=== PATIENT | male | born 1995 | race African-American/Black ===

== ENCOUNTER 2024-07-12 18:41 | Inpatient (IN) ==
--- NOTE | 2024-07-12 20:03 | DR.EXTPAIN ---
HPI Time seen Time Seen by Provider: 07/12/24 20:01 PCP Primary Care Physician: ERICA Complaint/Symptoms Chief Complaint:: Patient ambulated to triage and stated " for about a week tania noticed a a rash on my thigh that extended to my crack and then it became extremely painful. He was told by a friend it might be jock itch so he tried antifungals with no relief of symptoms. He also complains of painful discharge and dysuria and has seen bumps on his penis." Self Treatment fo Chief Complaint: Antifungal sprays. COVID-19 Coronavirus risk:travel/contact w/high risk person: No Has patient experienced Coronavirus symptoms: No Nurses notes reviewed Nurses Notes Review: Yes Source History Provided: Patient Mode of arrival Mode of Arrival: Ambulatory Timing Onset of Chief Complaint: 07/12/24 PMH PMH Past Medical History: No Past Medical History: Anxiety Past Surgical History: No Surgical History: No History Family History History of Family Medical Conditions: Yes Family Medical History: Diabetes Mellitus and Hypertension Social History Do you use any recreational Drugs:: No Travel Risk Coronavirus risk:travel/contact w/high risk person: No Has patient experienced Coronavirus symptoms: No Infectious screening In the last 2 months have you had wt loss of >10#?: NO Have you had fever, night sweats or hemotysis?: No Have you traveled outside the country in the last 6 months?: No Isolation: Standard PE Vital Signs Vitals: Vital Signs Temperature 98.1 F Pulse Rate [Left Brachial] 94 Pulse Rate 105 Respiratory Rate 18 Respiratory Rate 21 Respiratory Rate 21 Respiratory Rate 18 Blood Pressure [Left Arm] 143/83 Blood Pressure 142/82 O2 Sat by Pulse Oximetry 99 O2 Sat by Pulse Oximetry 97 ROR Labs Reviewed 07/14/24 04:16 07/14/24 04:16 Laboratory: WBC 6.6 X10^3/uL (3.6-10.0) 07/12/24 20:45 RBC 4.98 X10^6/uL (4.7-6.0) 07/12/24 20:45 Hgb 14.8 g/dL (13.5-18.0) 07/12/24 20:45 Hct 44.9 % (42.0-54.0) 07/12/24 20:45 MCV 90.0 fL (80.0-100.0) 07/12/24 20:45 MCH 29.6 pg (27.0-34.0) 07/12/24 20:45 MCHC 32.9 g/dL (33.0-35.0) L 07/12/24 20:45 RDW 12.9 % (11.6-16.5) 07/12/24 20:45 Plt Count 209 X10^3/uL (150.0-450.0) 07/12/24 20:45 MPV 9.5 fL (7.4-11.0) 07/12/24 20:45 Neut % (Auto) 71.3 % (42.0-75.0) 07/12/24 20:45 Lymph % (Auto) 18.6 % (21.0-51.0) L 07/12/24 20:45 [place] % (Auto) 9.3 % (0.0-13.0) 07/12/24 20:45 Eos % (Auto) 0.3 % (0.9-2.9) L 07/12/24 20:45 Baso % (Auto) 0.5 % (0.2-1.0) 07/12/24 20:45 Neut # (Auto) 4.7 x10^3/uL (2.2-4.8) 07/12/24 20:45 Lymph # (Auto) 1.2 X10^3/uL (1.3-2.9) L 07/12/24 20:45 [place] # (Auto) 0.6 x10^3/uL (0.3-0.8) 07/12/24 20:45 Eos # (Auto) 0.0 x10^3/uL (0.0-0.2) 07/12/24 20:45 Baso # (Auto) 0.0 X10^3/uL (0.0-0.1) 07/12/24 20:45 Absolute Nucleated RBC 0.2 /100WBC 07/12/24 20:45 Sodium 135 mmol/L (136-145) L 07/12/24 20:45 Corrected Sodium TNP 07/12/24 20:45 Potassium 4.2 mmol/L (3.5-5.1) 07/12/24 20:45 Chloride 99 mmol/L (98-107) 07/12/24 20:45 Carbon Dioxide 26.3 mmol/L (21-32) 07/12/24 20:45 BUN 11 mg/dL (7-18) 07/12/24 20:45 Creatinine 1.08 mg/dL (0.70-1.30) 07/12/24 20:45 Est GFR (MDRD) Af Amer > 60 (>60) 07/12/24 20:45 Est GFR (MDRD) Non-Af > 60 (>60) 07/12/24 20:45 Glucose 88 mg/dL (65-99) 07/12/24 20:45 Calcium 9.0 mg/dL (8.5-10.1) 07/12/24 20:45 Corrected Calcium TNP 07/12/24 20:45 Total Bilirubin 0.20 mg/dL (0.2-1.0) 07/12/24 20:45 AST 41 Units/L (15-37) H 07/12/24 20:45 ALT 63 Units/L (12-78) 07/12/24 20:45 Alkaline Phosphatase 105 Units/L (46-116) 07/12/24 20:45 Total Protein 9.8 g/dL (6.4-8.2) H 07/12/24 20:45 Albumin 3.5 g/dL (3.4-5.0) 07/12/24 20:45 Globulin 6.3 g/dL (2.5-4.5) H 07/12/24 20:45 Albumin/Globulin Ratio 0.6 Ratio (1.1-2.1) L 07/12/24 20:45 Specimen Type Clean catch urine 07/12/24 19:57 Urine Color Yellow (YELLOW) 07/12/24 19:57 Urine Appearance Slightly hazy (CLEAR) 07/12/24 19:57 Urine pH 6.0 (5.0 - 8.0) 07/12/24 19:57 Ur Specific [place] 1.020 (1.000-1.030) 07/12/24 19:57 Urine Protein 3+ (NEGATIVE) 07/12/24 19:57 Urine Glucose (UA) Negative (NEGATIVE) 07/12/24 19:57 Urine Ketones Negative (NEGATIVE) 07/12/24 19: Urine Blood 5+ (NEGATIVE) 07/12/24 19:57 Urine Nitrite Negative (NEGATIVE) 07/12/24 19:57 Urine Bilirubin Negative (NEGATIVE) 07/12/24 19:57 Urine Urobilinogen Normal (NORMAL) 07/12/24 19:57 Ur Leukocyte Esterase Negative (NEGATIVE) 07/12/24 19:57 Urine RBC Tntc /HPF (0-3) A 07/12/24 19:57 Urine WBC 0-2 /HPF (0-5) 07/12/24 19:57 Ur Squamous Epith Cells Rare /HPF (NEGATIVE) 07/12/24 19:57 Urine Bacteria Trace /HPF (NEGATIVE) 07/12/24 19:57 Ur Culture Indicated? No/not indicated 07/12/24 19:57 RPR Nonreactive (NONREACTIVE) 07/12/24 20:45 Ur C. trach DNA (PCR) Not detected (NOT DETECT) 07/12/24 19:57 U N.gonorrhoeae DNA PCR Not detected (NOT DETECT) 07/12/24 19:57 Opioid Opioid Risk Tool Age (Yonathan box if 16-45): Yes History of Preadolescent Sexual Abuse: No Total: 1 Total Score Risk Category: Low Risk Copyright: Efrain NERI predicting aberrant behaviors Discharge Plan Diagnosis Discharge Problem: Herpes genitalis in men, Herpes zoster, Hematuria Discharge Plan Patient Disposition: 09 ADMITTED INPATIENT Condition: Stable
[2024-07-12 20:06] LABS: BILIRUBIN,URINE NEGATIVE (NEGATIVE); BLOOD/HEMOGLOBIN,URINE 5+ (NEGATIVE); GLUCOSE, URINE NEGATIVE (NEGATIVE); KETONES,URINE NEGATIVE (NEGATIVE); LEUKOCYTE ESTERASE ,URINE NEGATIVE (NEGATIVE); NITRITES,URINE NEGATIVE (NEGATIVE); PROTEIN,URINE 3+ (NEGATIVE); UROBILINOGEN,URINE NORMAL (NORMAL)
[2024-07-12 20:17] LABS: APPEARANCE,URINE SLIGHTLY HAZY (CLEAR); COLOR,URINE YELLOW (YELLOW)
[2024-07-12 20:18] LABS: BACTERIA,URINE TRACE /HPF (NEGATIVE); RBC,URINE TNTC /HPF (0-3); SQUAMOUS EPITHELIAL CELL,UR RARE /HPF (NEGATIVE)
[2024-07-12] MEDS: ZOFRAN INJ 4 MG VIAL IVP ONE (20:51)
[2024-07-12] MEDS: NS 1,000 ML IV 1,000 ML IV ONE (20:51)
[2024-07-12] MEDS: TORADOL 30 MG VIAL IVP ONE (20:58)
[2024-07-12] MEDS: MORPHINE SULFATE INJ 4 MG IVP ONE (21:03)
[2024-07-12] MEDS: ZITHROMAX TAB 250 MG PO ONE (21:15)
[2024-07-12] MEDS: ROCEPHIN VIAL 1 GRAM IVP ONE (21:15)
[2024-07-12 23:23] LABS: BASOPHILS % (AUTO) 0.5 % (0.2-1.0); EOSINOPHILS % (AUTO) 0.3 % (0.9-2.9); HEMATOCRIT 44.9 % (42.0-54.0); HEMOGLOBIN 14.8 g/dL (13.5-18.0); LYMPHOCYTES # (AUTO) 1.2 X10^3/uL (1.3-2.9); LYMPHOCYTES % (AUTO) 18.6 % (21.0-51.0); MEAN CORPUSCULAR HEMOGLOBIN 29.6 pg (27.0-34.0); MEAN CORPUSCULAR HGB CONC 32.9 g/dL (33.0-35.0); MEAN PLATELET VOLUME 9.5 fL (7.4-11.0); MONOCYTES # (AUTO) 0.6 x10^3/uL (0.3-0.8); MONOCYTES % (AUTO) 9.3 % (0.0-13.0); NEUTROPHILS # (AUTO) 4.7 x10^3/uL (2.2-4.8); NEUTROPHILS % (AUTO) 71.3 % (42.0-75.0); PLATELET COUNT 209 X10^3/uL (150.0-450.0); RED BLOOD COUNT 4.98 X10^6/uL (4.7-6.0); RED CELL DISTRIBUTION WIDTH 12.9 % (11.6-16.5); WHITE BLOOD COUNT 6.6 X10^3/uL (3.6-10.0)
[2024-07-12 23:29] LABS: ALANINE AMINOTRANSFERASE 63 Units/L (12-78); ALBUMIN 3.5 g/dL (3.4-5.0); ALKALINE PHOSPHATASE 105 Units/L (46-116); ASPARTATE AMINO TRANSFERASE 41 Units/L (15-37); BLOOD UREA NITROGEN 11 mg/dL (7-18); CARBON DIOXIDE 26.3 mmol/L (21-32); CHLORIDE 99 mmol/L (98-107); CREATININE 1.08 mg/dL (0.70-1.30); GLUCOSE 88 mg/dL (65-99); POTASSIUM 4.2 mmol/L (3.5-5.1); SODIUM 135 mmol/L (136-145); TOTAL PROTEIN 9.8 g/dL (6.4-8.2); eGFR NON BLACK RACES > 60 (>60)
[2024-07-12] MEDS: ZOVIRAX VIAL 500 MG 1,000 MG in NS 250 ML IV 250 ML IV SCH (23:45)
[2024-07-12] MEDS: NS 1,000 ML IV 1,000 ML IV SCH (23:45)
[2024-07-13 00:05] VITALS: BMI 26.9
[2024-07-13] MEDS: MORPHINE SULFATE INJ 4 MG IVP PRN (00:11)
[2024-07-13] MEDS: TORADOL 30 MG VIAL IVP PRN (04:24)
[2024-07-13] MEDS: ZOFRAN INJ 4 MG VIAL IVP PRN (04:43)
[2024-07-13 04:57] LABS: BASOPHILS % (AUTO) 0.8 % (0.2-1.0); EOSINOPHILS % (AUTO) 0.2 % (0.9-2.9); HEMATOCRIT 37.6 % (42.0-54.0); LYMPHOCYTES # (AUTO) 1.9 X10^3/uL (1.3-2.9); LYMPHOCYTES % (AUTO) 30.4 % (21.0-51.0); MEAN CORPUSCULAR HEMOGLOBIN 29.2 pg (27.0-34.0); MEAN CORPUSCULAR HGB CONC 32.7 g/dL (33.0-35.0); MEAN CORPUSCULAR VOLUME 89.3 fL (80.0-100.0); MEAN PLATELET VOLUME 8.6 fL (7.4-11.0); MONOCYTES # (AUTO) 0.6 x10^3/uL (0.3-0.8); MONOCYTES % (AUTO) 10.2 % (0.0-13.0); NEUTROPHILS # (AUTO) 3.6 x10^3/uL (2.2-4.8); NEUTROPHILS % (AUTO) 58.4 % (42.0-75.0); PLATELET COUNT 187 X10^3/uL (150.0-450.0); RED BLOOD COUNT 4.22 X10^6/uL (4.7-6.0); WHITE BLOOD COUNT 6.2 X10^3/uL (3.6-10.0)
[2024-07-13 05:08] LABS: ALANINE AMINOTRANSFERASE 49 Units/L (12-78); ALBUMIN 2.7 g/dL (3.4-5.0); ALKALINE PHOSPHATASE 86 Units/L (46-116); ASPARTATE AMINO TRANSFERASE 35 Units/L (15-37); BLOOD UREA NITROGEN 11 mg/dL (7-18); CARBON DIOXIDE 26.5 mmol/L (21-32); CHLORIDE 101 mmol/L (98-107); CREATININE 1.23 mg/dL (0.70-1.30); GLUCOSE 92 mg/dL (65-99); POTASSIUM 4.4 mmol/L (3.5-5.1); SODIUM 133 mmol/L (136-145); TOTAL PROTEIN 7.8 g/dL (6.4-8.2); eGFR NON BLACK RACES > 60 (>60)
[2024-07-13 05:17] LABS: HEMOGLOBIN 12.3 g/dL (13.5-18.0)
[2024-07-13] MEDS: TYLENOL 325 MG TAB PO PRN (07:50)
--- NOTE | 2024-07-13 11:03 | DR.H&P ---
H&P History & Physical for Day of: H&P Date: 07/13/24 Chief Complaint Chief Complaint: genital rash, pain History of Present Illness History of Present Illness: Mr Gallego is a 28y/o male with no pertinent medical hx presented with worsening groin/genital pain and rash. He states he started having burning pain and discomfort in the right groin/thigh area and around his penis/scrotum area on Friday. He noticed blisters and redness the following day. He denies having HSV infection before. He has had STDs in the past years ago. He denies being on any medications at this time. ER work up showed no pertinent lab abnormalities, RPR neg, Chlamydia/Gonorrhea (-), viral culture was collected. Patient was started on IV Acyclovir, hydration and pain control. Patient had ER visit in 2019 for STD, at the time HIV testing was done which was reactive and positive. Patient states he was unaware of his results. Labs/imaging reviewed: -WBC 6.2 Hgb 12.3 K 4.4 BUN/Cr 03/26. -Viral culture pending Plan: Continue hydration, IV acyclovir and pain control. Will add topical acyclovir. Will repeat HIV testing. Replace electrolytes prn. Monitor AM labs/imaging. Past Medical History Past Medical History: Anxiety Past Surgical History Surgical History: No History Family History Family Medical History: Diabetes Mellitus, Heart Failure and Hypertension Social History Does patient currently use any type of tobacco product: Yes Type of Tobacco Use: Cigarettes How many years tobacco product used: 15 Does any household member use tobacco: No Alcohol Use: None Drug Use: None Medications Home Medications: Home Medications Medication Instructions Recorded Confirmed Type sulfamethoxazole 800 1 tab PO BID 07/12/24 07/12/24 History mg-trimethoprim 160 mg tablet (Bactrim DS) Allergies Allergies Allergy/AdvReac Type Severity Reaction Status Date / Time No Known Drug Allergies Allergy Verified 01/02/21 15:06 Labs 07/13/24 04:36 07/13/24 04:36 Labs: Laboratory WBC 6.2 X10^3/uL (3.6-10.0) 07/13/24 04:36 RBC 4.22 X10^6/uL (4.7-6.0) L 07/13/24 04:36 Hgb 12.3 g/dL (13.5-18.0) L D 07/13/24 04:36 Hct 37.6 % (42.0-54.0) L 07/13/24 04:36 MCV 89.3 fL (80.0-100.0) 07/13/24 04:36 MCH 29.2 pg (27.0-34.0) 07/13/24 04:36 MCHC 32.7 g/dL (33.0-35.0) L 07/13/24 04:36 RDW 13.0 % (11.6-16.5) 07/13/24 04:36 Plt Count 187 X10^3/uL (150.0-450.0) 07/13/24 04:36 MPV 8.6 fL (7.4-11.0) 07/13/24 04:36 Neut % (Auto) 58.4 % (42.0-75.0) 07/13/24 04:36 Lymph % (Auto) 30.4 % (21.0-51.0) 07/13/24 04:36 [place] % (Auto) 10.2 % (0.0-13.0) 07/13/24 04:36 Eos % (Auto) 0.2 % (0.9-2.9) L 07/13/24 04:36 Baso % (Auto) 0.8 % (0.2-1.0) 07/13/24 04:36 Neut # (Auto) 3.6 x10^3/uL (2.2-4.8) 07/13/24 04:36 Lymph # (Auto) 1.9 X10^3/uL (1.3-2.9) 07/13/24 04:36 [place] # (Auto) 0.6 x10^3/uL (0.3-0.8) 07/13/24 04:36 Eos # (Auto) 0.0 x10^3/uL (0.0-0.2) 07/13/24 04:36 Baso # (Auto) 0.0 X10^3/uL (0.0-0.1) 07/13/24 04:36 Absolute Nucleated RBC 0.1 /100WBC 07/13/24 04:36 Sodium 133 mmol/L (136-145) L 07/13/24 04:36 Corrected Sodium TNP 07/13/24 04:36 Potassium 4.4 mmol/L (3.5-5.1) 07/13/24 04:36 Chloride 101 mmol/L (98-107) 07/13/24 04:36 Carbon Dioxide 26.5 mmol/L (21-32) 07/13/24 04:36 BUN 11 mg/dL (7-18) 07/13/24 04:36 Creatinine 1.23 mg/dL (0.70-1.30) 07/13/24 04:36 Est GFR (MDRD) Af Amer > 60 (>60) 07/13/24 04:36 Est GFR (MDRD) Non-Af > 60 (>60) 07/13/24 04:36 Glucose 92 mg/dL (65-99) 07/13/24 04:36 Calcium 8.0 mg/dL (8.5-10.1) L 07/13/24 04:36 Corrected Calcium 9.0 mg/dL (8.5-10.1) 07/13/24 04:36 Total Bilirubin 0.20 mg/dL (0.2-1.0) 07/13/24 04:36 AST 35 Units/L (15-37) 07/13/24 04:36 ALT 49 Units/L (12-78) 07/13/24 04:36 Alkaline Phosphatase 86 Units/L (46-116) 07/13/24 04:36 Total Protein 7.8 g/dL (6.4-8.2) 07/13/24 04:36 Albumin 2.7 g/dL (3.4-5.0) L 07/13/24 04:36 Globulin 5.1 g/dL (2.5-4.5) H 07/13/24 04:36 Albumin/Globulin Ratio 0.5 Ratio (1.1-2.1) L 07/13/24 04:36 Specimen Type Clean catch urine 07/12/24 19:57 Urine Color Yellow (YELLOW) 07/12/24 19:57 Urine Appearance Slightly hazy (CLEAR) 07/12/24 19:57 Urine pH 6.0 (5.0 - 8.0) 07/12/24 19:57 Ur Specific [place] 1.020 (1.000-1.030) 07/12/24 19:57 Urine Protein 3+ (NEGATIVE) 07/12/24 19:57 Urine Glucose (UA) Negative (NEGATIVE) 07/12/24 19:57 Urine Ketones Negative (NEGATIVE) 07/12/24 19:57 Urine Blood 5+ (NEGATIVE) 07/12/24 19:57 Urine Nitrite Negative (NEGATIVE) 07/12/24 19:57 Urine Bilirubin Negative (NEGATIVE) 07/12/24 19:57 Urine Urobilinogen Normal (NORMAL) 07/12/24 19:57 Ur Leukocyte Esterase Negative (NEGATIVE) 07/12/24 19:57 Urine RBC Tntc /HPF (0-3) A 07/12/24 19:57 Urine WBC 0-2 /HPF (0-5) 07/12/24 19:57 Ur Squamous Epith Cells Rare /HPF (NEGATIVE) 07/12/24 19:57 Urine Bacteria Trace /HPF (NEGATIVE) 07/12/24 19:57 Ur Culture Indicated? No/not indicated 07/12/24 19:57 RPR Nonreactive (NONREACTIVE) 07/12/24 20:45 Ur C. trach DNA (PCR) Not detected (NOT DETECT) 07/12/24 19:57 U N.gonorrhoeae DNA PCR Not detected (NOT DETECT) 07/12/24 19:57 Review of Systems Constitutional: No Symptoms Reported Eyes: No Symptoms Reported ENT: No Symptoms Reported Respiratory: No Symptoms Reported Cardiovascular: No Symptoms Reported Gastrointestinal: No Symptoms Reported Genitourinary: Dysuria and Other (penile discharge ) Musculoskeletal: Leg Pain Skin: No Symptoms Reported Neurological: No Symptoms Reported Physical Exam Vital Signs: Vital Signs Temperature 99.5 F Temperature 100.6 F Temperature 101.3 F Temperature 98.2 F Pulse Rate [Left Brachial] 95 Pulse Rate [Left Brachial] 104 Respiratory Rate 18 Respiratory Rate 18 Respiratory Rate 18 Respiratory Rate 18 Respiratory Rate 18 Respiratory Rate 20 Respiratory Rate 20 Blood Pressure [Left Arm] 126/64 Blood Pressure [Left Arm] 134/65 O2 Sat by Pulse Oximetry 97 O2 Sat by Pulse Oximetry 96 Oriented: Normal Eyes: Normal Ear: Normal Nose: Normal Throat: Normal Respiratory: Clear Throughout Cardiovascular: Normal Auscultation: Bowel Sounds: Normal Palpation: Normal Tenderness: Normal Skin: Vesicular, Pustular, Red, Tender (Right groin/scrotal area including penis ) and Hot Musculoskeletal: Right, Thigh and Leg Psychiatric: Normal Mood Description: Calm Affect: Normal Speech Pattern: Clear and Appropriate Assessment/Plan (1) Herpes genitalis in men: Status: Acute (2) Sexually transmissible disease: Status: Acute (3) HIV (human immunodeficiency virus infection): Qualifiers: HIV symptom status: unspecified Qualified Code(s): Z21 - Asymptomatic human immunodeficiency virus [HIV] infection status Status: Chronic Review H&P Reviewed: Yes Patient was examined?: Yes
[2024-07-13] MEDS: NORCO 5/325 MG TAB PO PRN (13:06)
[2024-07-13] MEDS: ZOVIRAX EXT SCH (14:36)
[2024-07-14 04:40] LABS: BASOPHILS % (AUTO) 0.6 % (0.2-1.0); HEMATOCRIT 38.2 % (42.0-54.0); HEMOGLOBIN 12.6 g/dL (13.5-18.0); LYMPHOCYTES # (AUTO) 2.6 X10^3/uL (1.3-2.9); LYMPHOCYTES % (AUTO) 35.7 % (21.0-51.0); MEAN CORPUSCULAR HEMOGLOBIN 29.3 pg (27.0-34.0); MEAN CORPUSCULAR VOLUME 88.7 fL (80.0-100.0); MEAN PLATELET VOLUME 9.1 fL (7.4-11.0); MONOCYTES # (AUTO) 0.8 x10^3/uL (0.3-0.8); MONOCYTES % (AUTO) 10.7 % (0.0-13.0); NEUTROPHILS # (AUTO) 3.9 x10^3/uL (2.2-4.8); PLATELET COUNT 192 X10^3/uL (150.0-450.0); RED CELL DISTRIBUTION WIDTH 12.9 % (11.6-16.5); WHITE BLOOD COUNT 7.3 X10^3/uL (3.6-10.0)
[2024-07-14 04:48] LABS: ALANINE AMINOTRANSFERASE 41 Units/L (12-78); ALBUMIN 2.5 g/dL (3.4-5.0); ALKALINE PHOSPHATASE 76 Units/L (46-116); ASPARTATE AMINO TRANSFERASE 39 Units/L (15-37); BLOOD UREA NITROGEN 11 mg/dL (7-18); CALCIUM 8.1 mg/dL (8.5-10.1); CARBON DIOXIDE 25.8 mmol/L (21-32); CHLORIDE 100 mmol/L (98-107); COR CA(FOR HYPOALB) 9.3 mg/dL (8.5-10.1); GLUCOSE 90 mg/dL (65-99); SODIUM 131 mmol/L (136-145); TOTAL PROTEIN 7.7 g/dL (6.4-8.2); eGFR NON BLACK RACES > 60 (>60)
[2024-07-14 05:05] LABS: POTASSIUM 4.5 mmol/L (3.5-5.1)
--- NOTE | 2024-07-14 10:44 | PCM.PROG ---
Progress Note Progress Note for Day of Date of Exam: 07/14/24 Subjective Subjective: Patient seen at bedside, no acute events overnight. He is admitted for severe genital herpes. He states pain is better today. He does have more swelling compared to yesterday. The blistering seems to be improved. He has been able to urinate, denies any dysuria. He is currently on topical and IV acyclovir. Viral culture pending. Denies N/V/D. Labs/imaging reviewed: -WBC 7.3 Hgb 12.6 K 4.5 BUN/Cr 03/26 Plan: Continue IV acyclovir and topical ointment. Will DC fluids as patient reports normal appetite. Monitor swelling. Continue pain control prn. Replace electrolytes. Follow pending labs. Discussed patient's HIV results from 2019. Patient reports not getting notified then. He will be set up for follow up with HIV clinic on discharge. Monitor AM labs/imaging. Past Medical Family Social History Allergies: Allergies No Known Drug Allergies Allergy (Verified 01/02/21 15:06) Vital Signs and I&O's Vital Signs: Vital Signs Temperature 99.1 F Temperature 99.6 F Pulse Rate [Left Brachial] 104 Pulse Rate [Left Brachial] 97 Respiratory Rate 18 Respiratory Rate 18 Respiratory Rate 18 Respiratory Rate 21 Respiratory Rate 18 Respiratory Rate 18 Respiratory Rate 18 Blood Pressure [Left Arm] 142/75 Blood Pressure [Left Arm] 142/82 O2 Sat by Pulse Oximetry 96 O2 Sat by Pulse Oximetry 96 Intake and Output: Intake & Output 07/11/24 07/12/24 07/13/24 07/14/24 23:59 23:59 23:59 23:59 Intake Total 4460 / 4460 1982 Balance 4460 / 4460 1982 Physical Exam Oriented: Normal Eyes: Normal Ear: Normal Nose: Normal Throat: Normal Cardiovascular: Normal Auscultation: Bowel Sounds: Normal Tenderness: Normal Skin: Vesicular, Pustular, Red and Tender (Right groin/scrotal area including penis, erythema with blistering, swelling ) Musculoskeletal: Right, Thigh and Leg Psychiatric: Normal Mood Description: Calm Affect: Normal Speech Pattern: Clear and Appropriate Laboratory and Diagnostics 07/14/24 04:16 07/14/24 04:16 Labs: Laboratory WBC 7.3 X10^3/uL (3.6-10.0) 07/14/24 04:16 RBC 4.30 X10^6/uL (4.7-6.0) L 07/14/24 04:16 Hgb 12.6 g/dL (13.5-18.0) L 07/14/24 04:16 Hct 38.2 % (42.0-54.0) L 07/14/24 04:16 MCV 88.7 fL (80.0-100.0) 07/14/24 04:16 MCH 29.3 pg (27.0-34.0) 07/14/24 04:16 MCHC 33.0 g/dL (33.0-35.0) 07/14/24 04:16 RDW 12.9 % (11.6-16.5) 07/14/24 04:16 Plt Count 192 X10^3/uL (150.0-450.0) 07/14/24 04:16 MPV 9.1 fL (7.4-11.0) 07/14/24 04:16 Neut % (Auto) 53.0 % (42.0-75.0) 07/14/24 04:16 Lymph % (Auto) 35.7 % (21.0-51.0) 07/14/24 04:16 [place] % (Auto) 10.7 % (0.0-13.0) 07/14/24 04:16 Eos % (Auto) 0.0 % (0.9-2.9) L 07/14/24 04:16 Baso % (Auto) 0.6 % (0.2-1.0) 07/14/24 04:16 Neut # (Auto) 3.9 x10^3/uL (2.2-4.8) 07/14/24 04:16 Lymph # (Auto) 2.6 X10^3/uL (1.3-2.9) 07/14/24 04:16 [place] # (Auto) 0.8 x10^3/uL (0.3-0.8) 07/14/24 04:16 Eos # (Auto) 0.0 x10^3/uL (0.0-0.2) 07/14/24 04:16 Baso # (Auto) 0.0 X10^3/uL (0.0-0.1) 07/14/24 04:16 Absolute Nucleated RBC 0.0 /100WBC 07/14/24 04:16 Sodium 131 mmol/L (136-145) L 07/14/24 04:16 Corrected Sodium TNP 07/14/24 04:16 Potassium 4.5 mmol/L (3.5-5.1) 07/14/24 04:16 Chloride 100 mmol/L (98-107) 07/14/24 04:16 Carbon Dioxide 25.8 mmol/L (21-32) 07/14/24 04:16 BUN 11 mg/dL (7-18) 07/14/24 04:16 Creatinine 1.00 mg/dL (0.70-1.30) 07/14/24 04:16 Est GFR (MDRD) Af Amer > 60 (>60) 07/14/24 04:16 Est GFR (MDRD) Non-Af > 60 (>60) 07/14/24 04:16 Glucose 90 mg/dL (65-99) 07/14/24 04:16 Calcium 8.1 mg/dL (8.5-10.1) L 07/14/24 04:16 Corrected Calcium 9.3 mg/dL (8.5-10.1) 07/14/24 04:16 Total Bilirubin 0.30 mg/dL (0.2-1.0) 07/14/24 04:16 AST 39 Units/L (15-37) H 07/14/24 04:16 ALT 41 Units/L (12-78) 07/14/24 04:16 Alkaline Phosphatase 76 Units/L (46-116) 07/14/24 04:16 Total Protein 7.7 g/dL (6.4-8.2) 07/14/24 04:16 Albumin 2.5 g/dL (3.4-5.0) L 07/14/24 04:16 Globulin 5.2 g/dL (2.5-4.5) H 07/14/24 04:16 Albumin/Globulin Ratio 0.5 Ratio (1.1-2.1) L 07/14/24 04:16 Specimen Type Clean catch urine 07/12/24 19:57 Urine Color Yellow (YELLOW) 07/12/24 19:57 Urine Appearance Slightly hazy (CLEAR) 07/12/24 19:57 Urine pH 6.0 (5.0 - 8.0) 07/12/24 19:57 Ur Specific [place] 1.020 (1.000-1.030) 07/12/24 19:57 Urine Protein 3+ (NEGATIVE) 07/12/24 19:57 Urine Glucose (UA) Negative (NEGATIVE) 07/12/24 19:57 Urine Ketones Negative (NEGATIVE) 07/12/24 19:57 Urine Blood 5+ (NEGATIVE) 07/12/24 19:57 Urine Nitrite Negative (NEGATIVE) 07/12/24 19:57 Urine Bilirubin Negative (NEGATIVE) 07/12/24 19:57 Urine Urobilinogen Normal (NORMAL) 07/12/24 19:57 Ur Leukocyte Esterase Negative (NEGATIVE) 07/12/24 19:57 Urine RBC Tntc /HPF (0-3) A 07/12/24 19:57 Urine WBC 0-2 /HPF (0-5) 07/12/24 19:57 Ur Squamous Epith Cells Rare /HPF (NEGATIVE) 07/12/24 19:57 Urine Bacteria Trace /HPF (NEGATIVE) 07/12/24 19:57 Ur Culture Indicated? No/not indicated 07/12/24 19:57 RPR Nonreactive (NONREACTIVE) 07/12/24 20:45 Ur C. trach DNA (PCR) Not detected (NOT DETECT) 07/12/24 19:57 U N.gonorrhoeae DNA PCR Not detected (NOT DETECT) 07/12/24 19:57 Plan (1) Herpes genitalis in men: Status: Acute (2) Sexually transmissible disease: Status: Acute (3) HIV (human immunodeficiency virus infection): Status: Chronic Qualifiers: HIV symptom status: unspecified Qualified Code(s): Z21 - Asymptomatic human immunodeficiency virus [HIV] infection status
[2024-07-15 06:06] LABS: BASOPHILS # (AUTO) 0.1 X10^3/uL (0.0-0.1); BASOPHILS % (AUTO) 0.9 % (0.2-1.0); EOSINOPHILS % (AUTO) 0.1 % (0.9-2.9); HEMOGLOBIN 12.3 g/dL (13.5-18.0); LYMPHOCYTES # (AUTO) 2.8 X10^3/uL (1.3-2.9); LYMPHOCYTES % (AUTO) 36.8 % (21.0-51.0); MEAN CORPUSCULAR HEMOGLOBIN 29.4 pg (27.0-34.0); MEAN CORPUSCULAR HGB CONC 33.3 g/dL (33.0-35.0); MEAN CORPUSCULAR VOLUME 88.1 fL (80.0-100.0); MEAN PLATELET VOLUME 8.6 fL (7.4-11.0); MONOCYTES # (AUTO) 1.1 x10^3/uL (0.3-0.8); NEUTROPHILS # (AUTO) 3.7 x10^3/uL (2.2-4.8); NEUTROPHILS % (AUTO) 48.2 % (42.0-75.0); PLATELET COUNT 200 X10^3/uL (150.0-450.0); RED CELL DISTRIBUTION WIDTH 12.7 % (11.6-16.5); WHITE BLOOD COUNT 7.7 X10^3/uL (3.6-10.0)
[2024-07-15 06:21] LABS: ALANINE AMINOTRANSFERASE 35 Units/L (12-78); ALBUMIN 2.4 g/dL (3.4-5.0); ALKALINE PHOSPHATASE 71 Units/L (46-116); ASPARTATE AMINO TRANSFERASE 28 Units/L (15-37); BLOOD UREA NITROGEN 9 mg/dL (7-18); CALCIUM 8.1 mg/dL (8.5-10.1); CARBON DIOXIDE 26.4 mmol/L (21-32); CHLORIDE 99 mmol/L (98-107); COR CA(FOR HYPOALB) 9.4 mg/dL (8.5-10.1); CREATININE 0.86 mg/dL (0.70-1.30); GLUCOSE 83 mg/dL (65-99); SODIUM 131 mmol/L (136-145); TOTAL PROTEIN 7.5 g/dL (6.4-8.2); eGFR NON BLACK RACES > 60 (>60)
--- NOTE | 2024-07-15 11:28 | PCM.PROG ---
Progress Note Progress Note for Day of Date of Exam: 07/15/24 Subjective Subjective: Patient is a 28 year old male with past medical history of HIV admitted for severe genital herpes. He reports improvement in his symptoms and is pain continues to improve. The blistering seems to be improved. He has been able to urinate, denies any dysuria. He is currently on topical and IV acyclovir. Viral culture pending. Denies N/V/D. Labs/imaging reviewed: -WBC 7.7, hemoglobin 12.3, platelets 200, sodium 131, potassium 4.0, creatinine 0.86, glucose 83 -Blood culture pending. Plan: Continue IV acyclovir and topical ointment. Monitor swelling. Continue pain control prn. Replace electrolytes. Follow pending labs. He will be set up for follow up with HIV clinic on discharge. Monitor AM labs/imaging. Past Medical Family Social History Allergies: Allergies No Known Drug Allergies Allergy (Verified 01/02/21 15:06) Review of Systems ROS changes noted: see HPI Vital Signs and I&O's Vital Signs: Vital Signs Temperature 98.6 F Temperature 98.8 F Pulse Rate [Left Brachial] 92 Pulse Rate [Left Brachial] 96 Respiratory Rate 19 Respiratory Rate 18 Respiratory Rate 18 Respiratory Rate 17 Respiratory Rate 18 Respiratory Rate 19 Blood Pressure [Right Arm] 137/66 Blood Pressure [Left Arm] 139/92 O2 Sat by Pulse Oximetry 97 O2 Sat by Pulse Oximetry 98 Intake and Output: Intake & Output 07/12/24 07/13/24 07/14/24 07/15/24 23:59 23:59 23:59 23:59 Intake Total 4460 / 4460 3941 / 3941 594 / 594 Balance 4460 / 4460 3941 / 3941 594 / 594 Physical Exam Oriented: Normal Eyes: Normal Ear: Normal Nose: Normal Throat: Normal Respiratory: Normal Cardiovascular: Normal Auscultation: Bowel Sounds: Normal Tenderness: Normal Skin: Vesicular, Pustular, Red and Tender (Right groin/scrotal area including penis, erythema with blistering, swelling ) Musculoskeletal: Right, Thigh and Leg Psychiatric: Normal Mood Description: Calm Affect: Normal Speech Pattern: Clear and Appropriate Laboratory and Diagnostics 07/15/24 05:30 07/15/24 05:30 Labs: Laboratory WBC 7.7 X10^3/uL (3.6-10.0) 07/15/24 05:30 RBC 4.20 X10^6/uL (4.7-6.0) L 07/15/24 05:30 Hgb 12.3 g/dL (13.5-18.0) L 07/15/24 05:30 Hct 37.0 % (42.0-54.0) L 07/15/24 05:30 MCV 88.1 fL (80.0-100.0) 07/15/24 05:30 MCH 29.4 pg (27.0-34.0) 07/15/24 05:30 MCHC 33.3 g/dL (33.0-35.0) 07/15/24 05:30 RDW 12.7 % (11.6-16.5) 07/15/24 05:30 Plt Count 200 X10^3/uL (150.0-450.0) 07/15/24 05:30 MPV 8.6 fL (7.4-11.0) 07/15/24 05:30 Neut % (Auto) 48.2 % (42.0-75.0) 07/15/24 05:30 Lymph % (Auto) 36.8 % (21.0-51.0) 07/15/24 05:30 [place] % (Auto) 14.0 % (0.0-13.0) H 07/15/24 05:30 Eos % (Auto) 0.1 % (0.9-2.9) L 07/15/24 05:30 Baso % (Auto) 0.9 % (0.2-1.0) 07/15/24 05:30 Neut # (Auto) 3.7 x10^3/uL (2.2-4.8) 07/15/24 05:30 Lymph # (Auto) 2.8 X10^3/uL (1.3-2.9) 07/15/24 05:30 [place] # (Auto) 1.1 x10^3/uL (0.3-0.8) H 07/15/24 05:30 Eos # (Auto) 0.0 x10^3/uL (0.0-0.2) 07/15/24 05:30 Baso # (Auto) 0.1 X10^3/uL (0.0-0.1) 07/15/24 05:30 Absolute Nucleated RBC 0.1 /100WBC 07/15/24 05:30 Sodium 131 mmol/L (136-145) L 07/15/24 05:30 Corrected Sodium TNP 07/15/24 05:30 Potassium 4.0 mmol/L (3.5-5.1) 07/15/24 05:30 Chloride 99 mmol/L (98-107) 07/15/24 05:30 Carbon Dioxide 26.4 mmol/L (21-32) 07/15/24 05:30 BUN 9 mg/dL (7-18) 07/15/24 05:30 Creatinine 0.86 mg/dL (0.70-1.30) 07/15/24 05:30 Est GFR (MDRD) Af Amer > 60 (>60) 07/15/24 05:30 Est GFR (MDRD) Non-Af > 60 (>60) 07/15/24 05:30 Glucose 83 mg/dL (65-99) 07/15/24 05:30 Calcium 8.1 mg/dL (8.5-10.1) L 07/15/24 05:30 Corrected Calcium 9.4 mg/dL (8.5-10.1) 07/15/24 05:30 Total Bilirubin 0.30 mg/dL (0.2-1.0) 07/15/24 05:30 AST 28 Units/L (15-37) 07/15/24 05:30 ALT 35 Units/L (12-78) 07/15/24 05:30 Alkaline Phosphatase 71 Units/L (46-116) 07/15/24 05:30 Total Protein 7.5 g/dL (6.4-8.2) 07/15/24 05:30 Albumin 2.4 g/dL (3.4-5.0) L 07/15/24 05:30 Globulin 5.1 g/dL (2.5-4.5) H 07/15/24 05:30 Albumin/Globulin Ratio 0.5 Ratio (1.1-2.1) L 07/15/24 05:30 Specimen Type Clean catch urine 07/12/24 19:57 Urine Color Yellow (YELLOW) 07/12/24 19:57 Urine Appearance Slightly hazy (CLEAR) 07/12/24 19:57 Urine pH 6.0 (5.0 - 8.0) 07/12/24 19:57 Ur Specific [place] 1.020 (1.000-1.030) 07/12/24 19:57 Urine Protein 3+ (NEGATIVE) 07/12/24 19:57 Urine Glucose (UA) Negative (NEGATIVE) 07/12/24 19:57 Urine Ketones Negative (NEGATIVE) 07/12/24 19:57 Urine Blood 5+ (NEGATIVE) 07/12/24 19:57 Urine Nitrite Negative (NEGATIVE) 07/12/24 19:57 Urine Bilirubin Negative (NEGATIVE) 07/12/24 19:57 Urine Urobilinogen Normal (NORMAL) 07/12/24 19:57 Ur Leukocyte Esterase Negative (NEGATIVE) 07/12/24 19:57 Urine RBC Tntc /HPF (0-3) A 07/12/24 19:57 Urine WBC 0-2 /HPF (0-5) 07/12/24 19:57 Ur Squamous Epith Cells Rare /HPF (NEGATIVE) 07/12/24 19:57 Urine Bacteria Trace /HPF (NEGATIVE) 07/12/24 19:57 Ur Culture Indicated? No/not indicated 07/12/24 19:57 RPR Nonreactive (NONREACTIVE) 07/12/24 20:45 Ur C. trach DNA (PCR) Not detected (NOT DETECT) 07/12/24 19:57 U N.gonorrhoeae DNA PCR Not detected (NOT DETECT) 07/12/24 19:57 Plan (1) Herpes genitalis in men: Status: Acute (2) Sexually transmissible disease: Status: Acute (3) HIV (human immunodeficiency virus infection): Status: Chronic Qualifiers: HIV symptom status: unspecified Qualified Code(s): Z21 - Asymptomatic human immunodeficiency virus [HIV] infection status
[2024-07-15 23:15] VITALS: RESP 19
[2024-07-16 04:23] VITALS: TEMP 98.3; O2SAT 96
[2024-07-16 06:00] LABS: BASOPHILS # (AUTO) 0.1 X10^3/uL (0.0-0.1); BASOPHILS % (AUTO) 0.8 % (0.2-1.0); EOSINOPHILS % (AUTO) 0.2 % (0.9-2.9); HEMATOCRIT 36.1 % (42.0-54.0); HEMOGLOBIN 12.1 g/dL (13.5-18.0); LYMPHOCYTES # (AUTO) 2.1 X10^3/uL (1.3-2.9); LYMPHOCYTES % (AUTO) 26.5 % (21.0-51.0); MEAN CORPUSCULAR HEMOGLOBIN 29.7 pg (27.0-34.0); MEAN CORPUSCULAR HGB CONC 33.4 g/dL (33.0-35.0); MEAN PLATELET VOLUME 8.5 fL (7.4-11.0); MONOCYTES # (AUTO) 1.3 x10^3/uL (0.3-0.8); MONOCYTES % (AUTO) 16.8 % (0.0-13.0); NEUTROPHILS # (AUTO) 4.3 x10^3/uL (2.2-4.8); NEUTROPHILS % (AUTO) 55.7 % (42.0-75.0); PLATELET COUNT 215 X10^3/uL (150.0-450.0); RED BLOOD COUNT 4.06 X10^6/uL (4.7-6.0); RED CELL DISTRIBUTION WIDTH 12.7 % (11.6-16.5); WHITE BLOOD COUNT 7.8 X10^3/uL (3.6-10.0)
[2024-07-16 06:39] LABS: ALANINE AMINOTRANSFERASE 33 Units/L (12-78); ALBUMIN 2.3 g/dL (3.4-5.0); ALKALINE PHOSPHATASE 74 Units/L (46-116); ASPARTATE AMINO TRANSFERASE 29 Units/L (15-37); BLOOD UREA NITROGEN 13 mg/dL (7-18); CALCIUM 8.3 mg/dL (8.5-10.1); CARBON DIOXIDE 27.7 mmol/L (21-32); CHLORIDE 101 mmol/L (98-107); COR CA(FOR HYPOALB) 9.7 mg/dL (8.5-10.1); CREATININE 1.43 mg/dL (0.70-1.30); GLUCOSE 95 mg/dL (65-99); POTASSIUM 3.7 mmol/L (3.5-5.1); SODIUM 134 mmol/L (136-145); TOTAL PROTEIN 7.5 g/dL (6.4-8.2); eGFR NON BLACK RACES > 60 (>60)
[2024-07-16 10:18] VITALS: BP 141/85; PULSE 76
== END 2024-07-16 10:55 | disposition home or self-care (01) | DRG 728 ==
LOC: ER 18:41 → MED/SURG 21:46
PROVIDERS: ADMIT Family Medicine; ATTEND Family Medicine
DX: Z29.89 Encounter for other specified prophylactic measures; F41.8 Other specified anxiety disorders; A63.8 Other specified predominantly sexually transmitted diseases; E87.1 Hypo-osmolality and hyponatremia; Z72.0 Tobacco use; R31.9 Hematuria, unspecified; Z21 Asymptomatic human immunodeficiency virus [HIV] infection status; R30.0 Dysuria; A60.02 Herpesviral infection of other male genital organs